=== PATIENT | male | born 1955 | race Caucasian/White ===

== ENCOUNTER → 2017-01-18 | Outpatient (CLI) | payer BC ==
[~2017-01-18] MED LIST: DAYPRO600 M1 PO; MEDROL DOSEPAK4 MG PO; ROBAXIN750 MG PO; VICODIN 500 MG-1 TAB PO
[2017-01-18 14:47] LABS: BASO % 0.4 % (0.0-1.0); EOS # 0.4 10*3/uL (0.0-0.4); EOS % 8.4 % (1.0-4.0); IG # 0.1 10*3/uL (0.0-0.1); LYMPH # 1.7 10*3/uL (1.3-4.4); LYMPH % 34.4 % (27.0-41.0); MEAN CELL VOLUME 91.8 fl (80.0-94.0); MEAN CORPUSCULAR HGB 31.3 pg (27.0-31.0); MEAN PLATELET VOLUME 9.8 fl (9.6-12.3); MONO # 0.7 10*3/uL (0.1-1.0); MONO % 13.6 % (3.0-9.0); NEUT % 42.2 % (47.0-73.0); PLATELET COUNT AUTOMATED 176 10*3/uL (130-400); RED BLOOD COUNT 5.12 10*6/uL (4.50-5.90); RED CELL DISTRI WIDTH 13.9 % (0-14.5); WHITE BLOOD COUNT 4.8 10*3/uL (4.8-10.8)
[2017-01-18 15:03] LABS: HEMOGLOBIN A1c 7.2 % (4.8-5.6)
[2017-01-18 15:24] LABS: ALBUMIN 3.6 gm/dl (3.1-4.5); ALKALINE PHOSPHATASE 52 U/L (45-117); BILIRUBIN, TOTAL 0.5 mg/dl (0.2-1.0); BUN 22 mg/dl (7-24); CARBON DIOXIDE 29 mmol/L (21-32); CHLORIDE 104 mmol/L (98-107); CHOLESTEROL 116 mg/dL (<200); EST GLOM FILT AFRICAN AMERICAN > 60 ml/min; FREE T4 0.93 ng/dl (0.76-1.46); GLUCOSE 133 mg/dL (65-99); HDL CHOLESTEROL 24 mg/dl (40-60); LDL CHOLESTEROL 59 mg/dL (9-159); POTASSIUM 4.1 mmol/L (3.5-5.1); SGOT/AST 33 IU/L (3-35); SGPT/ALT 55 U/L (12-78); SODIUM 140 mmol/L (136-145); TOTAL PROTEIN 7.4 gm/dL (6.4-8.2); TRIGLYCERIDES 164 mg/dl (<150); VLDL CHOLESTEROL 33 mg/dL (6-40)
== END | disposition home or self-care (01) ==
LOC: LAB 14:08
PROVIDERS: Internal Medicine Endocrinology, Diabetes & Metabolism
DX: E78.2 Mixed hyperlipidemia (principal); E11.65 Type 2 diabetes mellitus with hyperglycemia; I10 Essential (primary) hypertension; E03.9 Hypothyroidism, unspecified

== ENCOUNTER 2017-05-04 15:44 | Emergency (ER) | payer BC ==
[~2017-05-04] VITALS: Ht 187.9 cm; Wt 145.1 kg
[2017-05-04 16:15] LABS: BASO % 0.3 % (0.0-1.0); EOS # 0.5 10*3/uL (0.0-0.4); EOS % 4.9 % (1.0-4.0); HEMATOCRIT 47.6 % (42.0-52.0); HEMOGLOBIN 16.5 g/dl (14.0-18.0); IG # 0.2 10*3/uL (0.0-0.1); LYMPH % 19.1 % (27.0-41.0); MEAN CORPUSCULAR HGB 30.8 pg (27.0-31.0); MEAN CORPUSCULAR HGB CONC 34.7 g/dl (33.0-37.0); MEAN PLATELET VOLUME 9.6 fl (9.6-12.3); MONO # 0.6 10*3/uL (0.1-1.0); MONO % 5.3 % (3.0-9.0); NEUT # 7.1 10*3/uL (2.3-7.9); NEUT % 68.4 % (47.0-73.0); PLATELET COUNT AUTOMATED 213 10*3/uL (130-400); RED BLOOD COUNT 5.35 10*6/uL (4.50-5.90); RED CELL DISTRI WIDTH 14.3 % (0-14.5); WHITE BLOOD COUNT 10.4 10*3/uL (4.8-10.8)
[2017-05-04 16:32] LABS: ALBUMIN 3.9 gm/dl (3.1-4.5); ALKALINE PHOSPHATASE 66 U/L (45-117); BILIRUBIN, TOTAL 0.4 mg/dl (0.2-1.0); BUN 24 mg/dl (7-24); CARBON DIOXIDE 23 mmol/L (21-32); CHLORIDE 104 mmol/L (98-107); EST GLOM FILT AFRICAN AMERICAN > 60 ml/min; GLUCOSE 180 mg/dL (65-99); POTASSIUM 4.2 mmol/L (3.5-5.1); SGOT/AST 24 IU/L (3-35); SGPT/ALT 47 U/L (12-78); SODIUM 137 mmol/L (136-145); TOTAL PROTEIN 7.8 gm/dL (6.4-8.2)
[2017-05-04 16:34] LABS: TROPONIN I < 0.015 ng/ml (<0.045)
[2017-05-04 16:35] LABS: PROTHROMBIN TIME 10.4 SECONDS (9.0-12.4)
[2017-05-04] MEDS ORDERED: MEDROL DOSEPAK4 MG PO (18:10)
[2017-05-04] MEDS ORDERED: ORPHENADRINE C100 M1 PO (18:10)
[2017-05-04] MEDS ORDERED: NAPROSYN500 MG PO (18:10)
== END 2017-05-04 20:55 | disposition left against medical advice (07) ==
LOC: ED 15:44
PROVIDERS: Nurse Practitioner Family
DX: R07.89 Other chest pain (principal); M54.5 Low back pain; R06.02 Shortness of breath; E78.5 Hyperlipidemia, unspecified; I10 Essential (primary) hypertension; E11.9 Type 2 diabetes mellitus without complications; F17.200 Nicotine dependence, unspecified, uncomplicated

== ENCOUNTER → 2017-05-27 | Outpatient (CLI) | payer BC ==
[~2017-05-27] MED LIST changes: +NAPROSYN500 MG PO; +ORPHENADRINE C100 M1 PO
[2017-05-27 17:06] LABS: ALBUMIN 3.8 gm/dl (3.1-4.5); ALKALINE PHOSPHATASE 67 U/L (45-117); BILIRUBIN, TOTAL 0.5 mg/dl (0.2-1.0); BUN 22 mg/dl (7-24); CARBON DIOXIDE 30 mmol/L (21-32); CHLORIDE 101 mmol/L (98-107); CHOLESTEROL 135 mg/dL (<200); EST GLOM FILT AFRICAN AMERICAN > 60 ml/min; FREE T4 1.15 ng/dl (0.76-1.46); GLUCOSE 171 mg/dL (65-99); HDL CHOLESTEROL 28 mg/dl (40-60); LDL CHOLESTEROL 44 mg/dL (9-159); POTASSIUM 4.2 mmol/L (3.5-5.1); SGOT/AST 23 IU/L (3-35); SGPT/ALT 47 U/L (12-78); SODIUM 138 mmol/L (136-145); TOTAL PROTEIN 7.6 gm/dL (6.4-8.2); TRIGLYCERIDES 315 mg/dl (<150); VLDL CHOLESTEROL 63 mg/dL (6-40)
[2017-05-28 10:09] LABS: MICRO ALBUMIN/CRE RATIO 16.5 (0.0-30.0)
[2017-05-28 12:06] LABS: LYME AB/TOTAL IMMUNOGLOBULINS <0.91 ISR (0.00-0.90)
== END | disposition home or self-care (01) ==
LOC: LAB 16:01
PROVIDERS: Internal Medicine Endocrinology, Diabetes & Metabolism
DX: Z11.2 Encounter for screening for other bacterial diseases (principal); E29.1 Testicular hypofunction; R53.83 Other fatigue; M60.9 Myositis, unspecified; E11.40 Type 2 diabetes mellitus with diabetic neuropathy, unspecified; Z79.4 Long term (current) use of insulin; W57.XXXA Bitten or stung by nonvenomous insect and other nonvenomous arthropods, initial encounter

== ENCOUNTER → 2017-05-31 | Outpatient (CLI) | payer BC | END | disposition home or self-care (01) | LOC: LAB 14:23 | DX: E11.40 Type 2 diabetes mellitus with diabetic neuropathy, unspecified (principal); Z79.4 Long term (current) use of insulin ==

== ENCOUNTER → 2017-06-02 | Outpatient (CLI) | payer BC | END | disposition home or self-care (01) | LOC: US 15:45 | DX: R22.1 Localized swelling, mass and lump, neck (principal); M79.9 Soft tissue disorder, unspecified ==

== ENCOUNTER → 2017-07-14 | Outpatient (CLI) | payer BC ==
[~2017-07-14] VITALS: Ht 193 cm; Wt 149.7 kg
[~2017-07-14] MED LIST changes: +ASPIRIN EC650 MG PO; +AXIRON30 MG/1.1 TD; +BYDUREON P2 MG/0.65 SQ; +FENOFIBRATE145 M1 PO; +HUMULIN N100 UNIT/2 SQ; +JARDIANCE10 MG PO; +LOPRESSOR50 M1 PO; +LOSARTAN-HCTZ1 EACH PO; +LOVAZA1 GM PO; +NIACIN PO; +QVAR8.7 G1 INH; +SIMVASTATIN20 MG PO; +SYNTHROID300 MCG PO; +TRESIBA FL100 UNIT/1 SQ; +XANAX1 MG PO; +ZOLOFT50 MG PO
[2017-07-14 13:12] VITALS: BP 151/72
[2017-07-14 14:50] LABS: BASO # 0.1 10*3/uL (0.0-0.1); BASO % 0.5 % (0.0-1.0); EOS # 0.6 10*3/uL (0.0-0.4); EOS % 6.2 % (1.0-4.0); HEMATOCRIT 46.5 % (42.0-52.0); HEMOGLOBIN 15.9 g/dl (14.0-18.0); LYMPH # 2.4 10*3/uL (1.3-4.4); LYMPH % 23.9 % (27.0-41.0); MEAN CELL VOLUME 91.5 fl (80.0-94.0); MEAN CORPUSCULAR HGB 31.3 pg (27.0-31.0); MEAN CORPUSCULAR HGB CONC 34.2 g/dl (33.0-37.0); MEAN PLATELET VOLUME 9.7 fl (9.6-12.3); MONO # 0.7 10*3/uL (0.1-1.0); MONO % 7.1 % (3.0-9.0); NEUT # 6.2 10*3/uL (2.3-7.9); PLATELET COUNT AUTOMATED 218 10*3/uL (130-400); RED BLOOD COUNT 5.08 10*6/uL (4.50-5.90); RED CELL DISTRI WIDTH 14.1 % (0-14.5); WHITE BLOOD COUNT 10.1 10*3/uL (4.8-10.8)
[2017-07-14 15:11] LABS: BUN 26 mg/dl (7-24); CHLORIDE 101 mmol/L (98-107); CREATININE 1.03 mg/dL (0.70-1.30); POTASSIUM 4.3 mmol/L (3.5-5.1); SODIUM 140 mmol/L (136-145)
== END | disposition home or self-care (01) ==
LOC: LAB 07:29 → SDC 08:45 → EDSTATUS 07-16 08:45 → SDC 07-16 09:30
PROVIDERS: Surgery
DX: M79.89 Other specified soft tissue disorders (principal); R22.1 Localized swelling, mass and lump, neck

== ENCOUNTER → 2017-08-31 | Outpatient (CLI) | payer BC ==
--- NOTE | ~2017-08-31 | PF ---
[place], [place] PULMONARY FUNCTION TEST [id number] UNIT #: [id number] ROOM: DOCTOR: MARLENY GARCIA MD,ROSIE BIRTHDATE: [birth year] DOS: 08/31/2017 ORDERED BY: Dr. Demarco Begum. HISTORY: The patient recorded as 61-year-old male, height of 76 inches, weight of 325 pounds. The patient was reported symptoms of shortness of breath with exertion, productive cough and frequent wheezing. History of tobacco use was noted 2 packs of cigarettes per day for 44 years. History of bronchial asthma was also reported. SPIROMETRY: The FVC were recorded 4.55 liters, 78% predicted value with 12% improvement postbronchodilator. The FEV1 was noted 3.37 liters as 74% predicted value with 16% improvement postbronchodilator test. Ratio of FEV1/FVC recorded 73%. Flow volume was suggestive of reversible obstructive lung disease. The patient's lung volumes, thoracic gas volume recorded as 72%, residual volume 121%, total lung capacity 98%. RV/TLC ratio 120%, lung volume suggestive of mild air trapping secondary to obstructive lung disease. The patient lung diffusion recorded 71%, mildly decreased without correction of carbon monoxide hemoglobin values. The patient's airway resistance and passive conductance were normal. FINAL IMPRESSION: Evidence of reversible obstructive lung disease and bronchial asthma was noted with current pulmonary function test. ROSIE FARMER MD CM:PFREPORT:PULMONARY FUNCTION TEST [id number] ROSIE GARCIA MD
== END | disposition home or self-care (01) ==
LOC: CP 12:58
DX: J44.9 Chronic obstructive pulmonary disease, unspecified (principal); I51.9 Heart disease, unspecified; G47.33 Obstructive sleep apnea (adult) (pediatric); E11.40 Type 2 diabetes mellitus with diabetic neuropathy, unspecified; L72.3 Sebaceous cyst; I10 Essential (primary) hypertension; R94.39 Abnormal result of other cardiovascular function study; E00.2 Congenital iodine-deficiency syndrome, mixed type; E78.5 Hyperlipidemia, unspecified; Z79.4 Long term (current) use of insulin

== ENCOUNTER → 2017-12-20 | Day surgery (SDC) | payer BC ==
[~2017-12-20] VITALS: Ht 193 cm; Wt 138.8 kg
--- NOTE | ~2017-12-20 | PROC NOTE ---
[place], [place] PROCEDURE NOTE NAME: GE TOSCANO UNIT #: [id number] ROOM: DOCTOR: MARLENY GARCIA MD,ROSIE BIRTHDATE: [birth year] DOS: 12/20/2017 PROCEDURE: Fibrobronchoscopy. PREOPERATIVE DIAGNOSIS: Nonresolving cough. The patient is wheezing with maximum medical management. POSTOPERATIVE DIAGNOSES: Evidence of moderate to severe mucus impaction, clear endobronchial tree bilaterally. PROCEDURE DESCRIPTION: Informed consent obtained for the patient. The patient brought to the OR and placed in a supine position. Conscious sedation administered by the Anesthesia Department. After achieving appropriate sedation, the patient's airway introduced into the mouth. Bronchoscope advanced to the airway into the laryngeal area. Epiglottis vocal cords were seen. The bronchoscope advanced to the vocal cord and tracheal lumen. The tracheal lumen for the patient was noted with moderate amount of thick mucus secretion. The patient suctioned out to the cas level. Right upper, right lower, left upper, lingula, lower lobe bronchi were all examined. Moderate amount of mucus plugs noted endobronchial tree bilaterally, which was suctioned out with half normal saline wash, sent for cultures. Procedure was well tolerated by the patient without difficulty. Postoperative findings were discussed with the patient's girlfriend in the recovery room. ROSIE FARMER MD CM:PROCNOTE:PROCEDURE NOTE 1402 [id number] ROSIE GARCIA MD
[2017-12-20 08:23] VITALS: BP 137/59
[2017-12-20 09:53] VITALS: BP 117/50
[2017-12-20 10:05] VITALS: BP 110/50
[2017-12-20 10:21] VITALS: BP 113/49
[2017-12-21 14:08] LABS: ACID FAST SPEC PROCESSING Concentration (.)
== END | disposition home or self-care (01) ==
LOC: SDC 08:02
PROVIDERS: Internal Medicine Critical Care Medicine
DX: J98.09 Other diseases of bronchus, not elsewhere classified (principal); G47.33 Obstructive sleep apnea (adult) (pediatric); J45.909 Unspecified asthma, uncomplicated; I10 Essential (primary) hypertension; K21.9 Gastro-esophageal reflux disease without esophagitis; Z98.890 Other specified postprocedural states; Z79.899 Other long term (current) drug therapy; E78.5 Hyperlipidemia, unspecified; E10.8 Type 1 diabetes mellitus with unspecified complications; E07.89 Other specified disorders of thyroid; E66.9 Obesity, unspecified; Z68.37 Body mass index [BMI] 37.0-37.9, adult; F17.210 Nicotine dependence, cigarettes, uncomplicated; Z82.49 Family history of ischemic heart disease and other diseases of the circulatory system

== ENCOUNTER 2018-02-14 22:59 | Inpatient (IN) | payer BC ==
[~2018-02-14] VITALS: Ht 193 cm; Wt 137.7 kg
--- NOTE | ~2018-02-14 | O ---
[place], [place] OPERATIVE NOTE NAME: GE TOSCANO UNIT #: [id number] ROOM: 421 DOCTOR: JASPER KNIGHT,JULIANA BIRTHDATE: [birth year] DOS: 02/16/2018 HISTORY OF PRESENT ILLNESS: The patient has presented with chief complaint of epigastric pain. The patient is on 325 mg aspirin tablets a day. Smoking about a pack and half to 2 packs of cigarettes per day. OPERATION: Today's procedure part of investigation is panendoscopy plus biopsy. PREMEDICATION: Versed and propofol. SCOPE: Olympus forward-viewing gastroscope Q10 video. REPORT: After putting the patient in left lateral position and application of lubricant to the scope, the scope was introduced. Thereafter, under direct visualization, advanced through the length of esophagus without difficulty. Gastric pouch was entered. Evidence of bile reflux gastritis seen. Duodenitis appreciated. Photographed. Antral biopsy was obtained. GI reflection of the scope reveals cardia to be benign. The patient extubated, tolerated the procedure well. IMPRESSION: Bile reflux gastritis, duodenitis. PLAN AND DISCUSSION: The patient advised to abstain from two aspirin per day. Aspirin would be adequate enough. The patient is going to be placed on Protonix 40 mg 1 daily. While inpatient here, we are going to give him 2 grams of Carafate slurry 2 hours before meals and at bedtime and regular diet. ACTIVITY: As tolerated. JULIANA HUTCHINSON MD CM:OPRECORD:OPERATIVE NOTE 1333 [id number] JULIANA HUTCHINSON MD 02/16/18 1444 interface
--- NOTE | ~2018-02-14 | CON ---
[place], [place] REPORT OF CONSULTATION NAME: GE TOSCANO UNIT #: [id number] ROOM: 421 DOCTOR: MARLENY GARCIA MD,ROSIE BIRTHDATE: [birth year] DOS: 02/16/2018 PULMONARY CONSULTATION EVALUATION MANAGEMENT REASON FOR CONSULTATION: To get the preoperative assessment for the patient's current plan, GI workup including colonoscopy and assessment of shortness of breath with hypoxia. REQUESTING PHYSICIAN: Hospitalist Services. HISTORY OF PRESENT ILLNESS: This is a 62-year-old white male who has been known to me from the past has been treated in the office with the medical management of obstructive sleep apnea disorder, past tobacco use and other problem. The patient has been assessed in the Emergency Room on 02/15/2018 as the patient reported symptoms of having increased pain, which is described in the upper portion of the abdomen. The symptoms were associated with significant nausea as well as some vomiting intermittently. The patient denies any symptoms of abdominal pain, was reported having diarrhea for the past 3 days, described watery without any blood in it. The pain has been noted intermittently. During the course of hospitalization, the patient stated he developed symptoms of shortness breath and also was reported with hypoxia. He has a CTA of the chest done yesterday as well that excluded any pulmonary embolism. He does have symptoms of mild cough without any sputum expectoration. Denies symptoms of hemoptysis or any chest pain with the symptoms. REVIEW OF SYSTEMS: CONSTITUTIONAL: Fatigue and tiredness reported without any symptoms of fever or chills at this time. EYES: Denies any burning, redness, or tenderness. EARS, NOSE, THROAT SYMPTOMS: Denies sore throat, hoarseness, otalgia, postnasal drainage or epistaxis. CARDIOVASCULAR: Denies anginal pain, edema of lower extremity or palpitation. GASTROINTESTINAL: Upper abdominal pain reported with nausea, vomiting, which has been noted stable with the diarrhea. Denies symptoms of hematochezia. Denies symptoms of melena. GENITOURINARY SYMPTOMS: No dysuria, suprapubic pain, or hematuria. MUSCULOSKELETAL: No acute joint pain, redness or tenderness or any deformities. SKIN: No abnormal lesions or rashes. CENTRAL NERVOUS SYSTEM: No dizziness, headache, diplopia, syncopal episodes or seizures. Remaining systems were reviewed, they were noted all negative. PAST MEDICAL HISTORY: 1. Uncomplicated moderate persistent bronchial asthma. 2. Obstructive sleep apnea disorder, currently treated with the oral BiPAP with the pressures of 21/13 were noted the max pressure in 12/2017. 3. Allergic rhinitis. 4. Type 2 diabetes mellitus. 5. Hypothyroidism. [place], [place] REPORT OF CONSULTATION NAME: GE TOSCANO UNIT #: [id number] ROOM: 421 DOCTOR: MARLENY GARCIA MD,ROSIE BIRTHDATE: [birth year] 6. Hypercholesterolemia. 7. Essential hypertension. 8. Generalized anxiety disorder and depression. 9. Chronic obesity. PAST SURGICAL HISTORY: 1. T and A. 2. Flexible bronchoscopy that was done as an outpatient recently as a therapeutic bronchoscopy on 12/20/2017. SOCIAL HISTORY: The patient is currently , has no children, lives at home. Denies history of alcohol use or any illicit drug use. Tobacco use noted from age [age] years old, pack of cigarettes a day stating no tobacco use since mid-January of 2018. FAMILY HISTORY: Father at age 57 years complication of myocardial infarction. Mother current living, 89 years old with history of acute stroke. CURRENT MEDICATIONS: Administered for the patient was noted as use of Carafate, fish oil, sertraline , insulin, levothyroxine, Protonix intravenously, promethazine, IV Zosyn, Xanax, morphine and other p.r.n. medications. DRUG ALLERGIES: Noted as no known drug allergies. PHYSICAL EXAMINATION: GENERAL: This is a 62-year-old white male noted awake and alert without any acute distress. Height of 6 feet 4 inches, weight of 203 pounds, BMI 36.9. Chronic obesity. VITAL SIGNS: Reported as normal temperature in the last 24 hours for admission, heart rate noted essentially with bradycardia for this patient as 46 beats per minute and the highest previous noted as 80 beats per minute. The respiratory rate was 18-20. The blood pressure 150/52-120/62. Pulse oxygen saturation currently noted room air 100%, previously 4 L nasal cannula 95% saturation. HEENT: The head was atraumatic. Severe reduced posterior pharyngeal space with high tongue base and crowding of soft tissue structures. NECK: Supple. CARDIOVASCULAR: S1, S2 audible without any added sounds. LUNGS: Noted mild decreased breath sounds in the lungs bilaterally without any wheezing or crackles. ABDOMEN: Soft, nontender with chronic obesity. EXTREMITIES: The patient noted without any acute edema, clubbing or cyanosis. MUSCULOSKELETAL: The patient was noted without any acute deformities. SKIN: Visible skin was noted without any lesions or rashes. LABORATORY DATA: CBC that was done on 02/14/2018 was noted WBC count 15.8, hemoglobin 18.3, hematocrit 54.8 with normal platelet count. The lactic acid noted 3.9 on admission. The PTT was noted on 02/14/2018 as 22. CMP of the patient in the Emergency Room BUN 22, creatinine 1.51, potassium 3.1. The CMP of patient that were done yesterday, normal BUN and creatinine at that time. CBC on 02/15/2018 WBC count 11.1, the patient was still noted mildly elevated [place], [place] REPORT OF CONSULTATION NAME: GE TOSCANO UNIT #: [id number] ROOM: 421 DOCTOR: MARLENY GARCIA MD,[facility] BIRTHDATE: [birth year] with hematocrit 51.8 and hemoglobin of 16.9. CBC of this morning was noted with normal hemoglobin and hematocrit, WBC count 14.2. The CMP this morning, normal BUN and creatinine completely. Potassium was normal. The PTT was noted as normal. Upper abdominal ultrasound noted gallbladder sludge noted with gallbladder wall thickening. There were no cholelithiasis or biliary dilatation, suspected. He had a CT of the chest done yesterday at the time of the absence of current problem noted clear CT scan without any evidence of pulmonary embolism. The abdominal CT scan and the pelvic CT scan done on 02/15/2018 in the Emergency Room was reported no acute inflammatory issues, diverticulosis noted without any radiologic evidence of diverticulitis. IMPRESSION: 1. The patient currently admitted to the hospital for upper abdominal pain. The patient is tolerating clear, may be related to the cholecystitis or other abnormality such as gastritis, will remain in consideration. 2. Hypoxia reported at this time not clear to me with rapid resolution of hypoxia might be suggestive of error in recording of his pulse ox. 3. Admission with elevated hemoglobin and hematocrit most likely secondary to intravascular volume depletion with diarrhea and others and secondary polycythemia due to lack of oxygen supplementation at night. 4. Known history of obstructive sleep apnea disorder treated with the BiPAP. 5. History of bronchial asthma without any evidence of acute exacerbation as well. 6. Chronic obesity. PLAN OF TREATMENT: Based on my opinion, the patient could undergo the EGD and colonoscopy as planned for further assessment. Consider further GI workup for this patient as well. Other supportive therapy, plan of management to be done has already been scheduled. The assessment and management was discussed with Dr. Warner Newman. The patient could use his own BiPAP at home, could be started during this hospitalization with the settings of BiPAP of . Further changes and reassessment of the patient will be done based on the progression of the current illness. ROSIE FARMER MD CM:CONSTR:REPORT OF CONSULTATION 1350 02/17/18 0111 interface
--- NOTE | ~2018-02-14 | CON ---
[place], [place] REPORT OF CONSULTATION [id number] UNIT #: [id number] ROOM: 421 DOCTOR: JASPER KNIGHTROYCEMAURICE BIRTHDATE: [birth year] DOS: 02/16/2018 GASTROENDOSCOPIC CONSULTATION REPORT HISTORY OF PRESENT ILLNESS: This is a 62-year-old patient who has presented with multiple complaints, among which has been his polycythemia appearance with white blood cell of 15.8 and H and H of 18 and 54. The patient is also complaining of subxiphoid pain, initially complained of chest pain also and shortness of breath. All the studies have been reviewed by Dr. Newman and we initially canceled him from endoscopy schedule and apparently all became negative and ____ cleared for EGD. His hemoglobin A1c was 7.2. This gentleman is doing about 700 mg of aspirin daily and smoker of about a pack and half to 2 packs per day, expected problem. The CT scan of the head was taken for his headache and it was negative. CT scan of the abdomen and pelvis was done, no evidence of inflammatory process. Troponins remain negative and essentially unremarkable studies otherwise. PAST MEDICAL HISTORY: Congestive heart failure, obesity, asthma, gastroesophageal reflux, diabetes mellitus, hypertension, and hypothyroidism. PAST SURGICAL HISTORY: Laminectomy. SOCIAL HISTORY: Smoker and nonalcohol consumer except in social ways. FAMILY HISTORY: Noncontributory. ALLERGIES: Allergies to no known medications. MEDICATIONS: Medication list has been reviewed. REVIEW OF SYSTEMS: HEENT: Denies double vision, blurred vision. RESPIRATORY: Denies acute shortness of breath. CARDIOVASCULAR: Denies acute chest pain. DIGESTIVE SYSTEM: Subxiphoid pain. PHYSICAL EXAMINATION: GENERAL: Erythemic like sunburn pattern. HEENT: Head normocephalic, nontraumatic. Mouth and buccal mucosa benign. NECK: Supple. No thyromegaly, no cervical lymphadenopathy. CHEST: Symmetric anatomy, equal expansion. No wheeze, no rhonchi. HEART: Normal sinus rhythm. No gallop, no murmur. ABDOMEN: Large, soft. No hepato-organomegaly can be elicited. Bowel sounds present. EXTREMITIES: No cyanosis, no pedal edema. NEUROLOGIC: Alert, oriented to time, place, and person. IMPRESSION AND PLAN: Epigastric pain, diffuse fatty metamorphosis of liver, taking 700 mg of aspirin and a pack and half to 2 packs of cigarettes per day and initially polycythemic appearance, which has responded to hydration with a [place], [place] REPORT OF CONSULTATION NAME: GE TOSCANO UNIT #: [id number] ROOM: [facility] DOCTOR: JULIANA HUTCHINSON MD BIRTHDATE: [birth year] drop in H and H to 15 and 48. CTA of the chest has been unremarkable. Sed rate has been unremarkable. He has some glucose intolerance with elevated hemoglobin A1c. Since all the studies are negative and his complaint is subxiphoid, I am going to proceed with EGD. JULIANA HUTCHINSON MD CM:CONSTR:REPORT OF CONSULTATION 1312 02/17/18 0030 interface
[2018-02-14 22:59] VITALS: BP 116/52
[2018-02-14 23:15] VITALS: BP 103/55
[2018-02-14 23:28] VITALS: BP 103/55
[2018-02-14 23:31] LABS: BASO # 0.1 10*3/uL (0.0-0.1); BASO % 0.4 % (0.0-1.0); EOS # 1.2 10*3/uL (0.0-0.4); EOS % 7.5 % (1.0-4.0); HEMATOCRIT 54.8 % (42.0-52.0); HEMOGLOBIN 18.3 g/dl (14.0-18.0); LYMPH # 3.3 10*3/uL (1.3-4.4); LYMPH % 20.8 % (27.0-41.0); MEAN CELL VOLUME 85.8 fl (80.0-94.0); MEAN CORPUSCULAR HGB 28.6 pg (27.0-31.0); MEAN CORPUSCULAR HGB CONC 33.4 g/dl (33.0-37.0); MEAN PLATELET VOLUME 9.6 fl (9.6-12.3); MONO # 0.9 10*3/uL (0.1-1.0); MONO % 5.8 % (3.0-9.0); NEUT # 10.2 10*3/uL (2.3-7.9); NEUT % 64.6 % (47.0-73.0); PLATELET COUNT AUTOMATED 288 10*3/uL (130-400); RED BLOOD COUNT 6.39 10*6/uL (4.50-5.90); RED CELL DISTRI WIDTH 17.5 % (0-14.5); WHITE BLOOD COUNT 15.8 10*3/uL (4.8-10.8)
[2018-02-14 23:45] VITALS: BP 102/51
[2018-02-14 23:47] LABS: ALBUMIN 3.9 gm/dl (3.1-4.5); ALKALINE PHOSPHATASE 72 U/L (45-117); BUN 22 mg/dl (7-24); CHLORIDE 100 mmol/L (98-107); CREATININE 1.51 mg/dL (0.70-1.30); LIPASE 165 U/L (73-393); POTASSIUM 3.1 mmol/L (3.5-5.1); SGOT/AST 20 IU/L (3-35); SGPT/ALT 35 U/L (12-78); SODIUM 139 mmol/L (136-145); TOTAL PROTEIN 7.7 gm/dL (6.4-8.2)
[2018-02-14 23:48] LABS: TROPONIN I < 0.015 ng/ml (<0.045)
[2018-02-15] VITALS (12 sets, daily range): BP systolic 108–130; BP diastolic 49–62
[2018-02-15 01:59] LABS: BILIRUBIN NEGATIVE (NEGATIVE); BLOOD NEGATIVE (NEGATIVE); CLARITY CLEAR (CLEAR); COLOR YELLOW (YELLOW); GLUCOSE 3+ (NEGATIVE); KETONE NEGATIVE (NEGATIVE); LEUKO ESTERASE NEGATIVE (NEGATIVE); NITRITE NEGATIVE (NEGATIVE); UROBILINOGEN 0.2 E.U./dl (0.2-1.0)
[2018-02-15] MEDS ORDERED: ENTRESTO 49 MG1 EACH PO (03:59)
[2018-02-15] MEDS ORDERED: HUMALOG100 UNIT/1 SQ (04:00)
[2018-02-15 04:35] LABS: ACT PARTIAL THROMBO TIME 25.1 SECONDS (20.8-31.5); INTERNATIONAL NORM RATIO 1.1 (2.0-3.5)
[2018-02-15 04:52] LABS: ALBUMIN 3.4 gm/dl (3.1-4.5); ALKALINE PHOSPHATASE 60 U/L (45-117); BUN 24 mg/dl (7-24); CHLORIDE 106 mmol/L (98-107); CHOLESTEROL 119 mg/dL (<200); CREATININE 1.25 mg/dL (0.70-1.30); PHOSPHOROUS 3.3 mg/dL (2.5-4.9); POTASSIUM 3.9 mmol/L (3.5-5.1); SGOT/AST 19 IU/L (3-35); SGPT/ALT 31 U/L (12-78); SODIUM 139 mmol/L (136-145); TOTAL PROTEIN 6.9 gm/dL (6.4-8.2); TRIGLYCERIDES 158 mg/dl (<150); VLDL CHOLESTEROL 32 mg/dL (6-40)
[2018-02-15 04:56] LABS: HDL CHOLESTEROL 19 mg/dl (40-60); LDL CHOLESTEROL 68 mg/dL (9-159)
[2018-02-15 06:21] LABS: HEMATOCRIT 51.8 % (42.0-52.0); HEMOGLOBIN 16.9 g/dl (14.0-18.0); MEAN CELL VOLUME 87.9 fl (80.0-94.0); MEAN CORPUSCULAR HGB 28.7 pg (27.0-31.0); MEAN CORPUSCULAR HGB CONC 32.6 g/dl (33.0-37.0); MEAN PLATELET VOLUME 10.1 fl (9.6-12.3); PLATELET COUNT AUTOMATED 239 10*3/uL (130-400); RED BLOOD COUNT 5.89 10*6/uL (4.50-5.90); RED CELL DISTRI WIDTH 17.1 % (0-14.5); WHITE BLOOD COUNT 11.8 10*3/uL (4.8-10.8)
[2018-02-15 07:07] LABS: ATYPICAL LYMPHS 2 % (0-0); BASOPHILS 1 % (0-1); PLATELET SUFFICIENCY NORMAL (NORMAL); TOTAL CELLS COUNTED 100 #CELLS
[2018-02-15 07:09] LABS: VITAMIN D, 25-HYDROXY 22.8 ng/mL (30-100)
[2018-02-15] MEDS ORDERED: PRILOSEC20 M1 PO (11:24)
[2018-02-15] MEDS ORDERED: MUCINEX DM 30/61 TAB PO (11:26)
[2018-02-16] VITALS (7 sets, daily range): BP systolic 120–150; BP diastolic 40–68
[2018-02-16 06:55] LABS: BASO # 0.1 10*3/uL (0.0-0.1); BASO % 0.4 % (0.0-1.0); EOS # 0.5 10*3/uL (0.0-0.4); EOS % 3.4 % (1.0-4.0); HEMATOCRIT 48.4 % (42.0-52.0); HEMOGLOBIN 15.7 g/dl (14.0-18.0); LYMPH # 2.3 10*3/uL (1.3-4.4); LYMPH % 16.1 % (27.0-41.0); MEAN CORPUSCULAR HGB 28.5 pg (27.0-31.0); MEAN CORPUSCULAR HGB CONC 32.4 g/dl (33.0-37.0); MEAN PLATELET VOLUME 9.7 fl (9.6-12.3); MONO # 0.9 10*3/uL (0.1-1.0); MONO % 6.3 % (3.0-9.0); NEUT # 10.4 10*3/uL (2.3-7.9); NEUT % 72.9 % (47.0-73.0); PLATELET COUNT AUTOMATED 208 10*3/uL (130-400); RED CELL DISTRI WIDTH 16.5 % (0-14.5); WHITE BLOOD COUNT 14.2 10*3/uL (4.8-10.8)
[2018-02-16 07:09] LABS: ALBUMIN 3.1 gm/dl (3.1-4.5); ALKALINE PHOSPHATASE 56 U/L (45-117); BUN 16 mg/dl (7-24); CHLORIDE 108 mmol/L (98-107); CREATININE 1.19 mg/dL (0.70-1.30); LIPASE 127 U/L (73-393); POTASSIUM 4.2 mmol/L (3.5-5.1); SGOT/AST 13 IU/L (3-35); SGPT/ALT 28 U/L (12-78); SODIUM 141 mmol/L (136-145); TOTAL PROTEIN 6.4 gm/dL (6.4-8.2)
[2018-02-16] MEDS ORDERED: GOOD SENSE ASP325 MG PO (15:45)
[2018-02-16] MEDS ORDERED: LOPRESSOR25 MG PO (15:45)
[2018-02-16] MEDS ORDERED: PROTONIX40 MG PO (15:45)
[2018-02-16] MEDS ORDERED: CARAFATE1 G1 PO (15:45)
== END 2018-02-16 16:21 | disposition home or self-care (01) | DRG 391 ==
LOC: ED 22:59 → ICCU 02-15 02:39 → EDHOLD 02-15 02:39 → ICCU 02-15 03:01 → 4E 02-15 17:26
PROVIDERS: Emergency Medicine; Emergency Medicine Emergency Medical Services; Internal Medicine; Internal Medicine Nephrology
PROC: 0DB68ZX Excision of Stomach, Via Natural or Artificial Opening Endoscopic, Diagnostic (ICD-10-PCS; principal; 2018-02-16)
DX: K29.70 Gastritis, unspecified, without bleeding (principal); N17.0 Acute kidney failure with tubular necrosis; E87.2 Acidosis; E66.01 Morbid (severe) obesity due to excess calories; E83.41 Hypermagnesemia; D75.1 Secondary polycythemia; R10.13 Epigastric pain; I50.9 Heart failure, unspecified; K57.30 Diverticulosis of large intestine without perforation or abscess without bleeding; D72.810 Lymphocytopenia; E87.6 Hypokalemia; E11.9 Type 2 diabetes mellitus without complications; E78.5 Hyperlipidemia, unspecified; E03.8 Other specified hypothyroidism; K21.9 Gastro-esophageal reflux disease without esophagitis; G47.33 Obstructive sleep apnea (adult) (pediatric); F17.210 Nicotine dependence, cigarettes, uncomplicated; I11.0 Hypertensive heart disease with heart failure; F32.9 Major depressive disorder, single episode, unspecified; J45.909 Unspecified asthma, uncomplicated; K29.80 Duodenitis without bleeding; Z79.4 Long term (current) use of insulin; Z71.6 Tobacco abuse counseling; Z68.36 Body mass index [BMI] 36.0-36.9, adult

== ENCOUNTER → 2018-02-23 | Outpatient (CLI) | payer BC ==
[~2018-02-23] MED LIST changes: +CARAFATE1 G1 PO; +ENTRESTO 49 MG1 EACH PO; +GOOD SENSE ASP325 MG PO; +HUMALOG100 UNIT/1 SQ; +LOPRESSOR25 MG PO; +MUCINEX DM 30/61 TAB PO; +PRILOSEC20 M1 PO; +PROTONIX40 MG PO
[2018-02-23 14:09] LABS: BASO # 0.1 10*3/uL (0.0-0.1); BASO % 0.4 % (0.0-1.0); EOS # 1.5 10*3/uL (0.0-0.4); EOS % 12.3 % (1.0-4.0); HEMATOCRIT 53.4 % (42.0-52.0); HEMOGLOBIN 17.6 g/dl (14.0-18.0); LYMPH % 16.7 % (27.0-41.0); MEAN CELL VOLUME 87.7 fl (80.0-94.0); MEAN CORPUSCULAR HGB 28.9 pg (27.0-31.0); MEAN PLATELET VOLUME 9.9 fl (9.6-12.3); MONO # 0.9 10*3/uL (0.1-1.0); MONO % 7.3 % (3.0-9.0); NEUT # 7.5 10*3/uL (2.3-7.9); PLATELET COUNT AUTOMATED 252 10*3/uL (130-400); RED BLOOD COUNT 6.09 10*6/uL (4.50-5.90); RED CELL DISTRI WIDTH 17.1 % (0-14.5)
[2018-02-23 14:26] LABS: ALBUMIN 3.8 gm/dl (3.1-4.5); BUN 20 mg/dl (7-24); CHLORIDE 101 mmol/L (98-107); CREATININE 1.14 mg/dL (0.70-1.30); LIPASE 131 U/L (73-393); POTASSIUM 4.2 mmol/L (3.5-5.1); SGOT/AST 18 IU/L (3-35); SGPT/ALT 28 U/L (12-78); SODIUM 138 mmol/L (136-145)
[2018-02-23 14:27] LABS: ALKALINE PHOSPHATASE 68 U/L (45-117); TOTAL PROTEIN 7.2 gm/dL (6.4-8.2)
== END | disposition home or self-care (01) ==
LOC: LAB 13:34
PROVIDERS: Internal Medicine Cardiovascular Disease
DX: I11.9 Hypertensive heart disease without heart failure (principal); R00.2 Palpitations; I49.3 Ventricular premature depolarization; I25.10 Atherosclerotic heart disease of native coronary artery without angina pectoris; E11.621 Type 2 diabetes mellitus with foot ulcer; E11.40 Type 2 diabetes mellitus with diabetic neuropathy, unspecified; R94.39 Abnormal result of other cardiovascular function study; K21.9 Gastro-esophageal reflux disease without esophagitis; E29.1 Testicular hypofunction; E06.3 Autoimmune thyroiditis; F32.9 Major depressive disorder, single episode, unspecified; R07.9 Chest pain, unspecified; Z79.4 Long term (current) use of insulin

== ENCOUNTER → 2018-03-30 | Day surgery (SDC) | payer BC ==
[~2018-03-30] VITALS: Ht 193 cm; Wt 140.6 kg
[~2018-03-30] MED LIST changes: +AXIRON30 MG/1.1 T; +COREG3.125 MG PO; +COUMADIN5 M2 PO; +Coumadin2.5 MG PO; +FISH OIL 500MG PO; +LEVAQUIN750 M1 PO; +LOVENOX120 MG/0.8 SC; +Lopressor25 MG PO; +NORCO 5-325 TA1 EACH PO; -SYNTHROID300 MCG PO; +Synthroid,Lev200 MCG PO
--- NOTE | ~2018-03-30 | O ---
[place], [place] OPERATIVE NOTE NAME: GE TOSCANO UNIT #: [id number] ROOM: DOCTOR: JULIANA HUTCHINSON MD BIRTHDATE: [birth year] DOS: 03/30/2018 INDICATIONS: The patient is a 62-year-old who has presented with colonic screening. ALLERGIES: No known medication. PAST MEDICAL HISTORY: Hypercholesterolemia, hypertension, diabetes mellitus and hypothyroidism. SOCIAL HISTORY: Smoker, nonalcohol consumer. FAMILY HISTORY: Noncontributory. PAST SURGICAL HISTORY: Tonsillectomy and lower back surgery. PROCEDURE: Today's procedure part of investigation is colonoscopy. PREMEDICATION: Propofol. SCOPE: Olympus folding colonoscope 10L video. REPORT: After putting the patient in left lateral position and application of lubricant to rectal pouch and digital examination, the scope was introduced; thereafter, under direct visualization, advanced through the length of colon without difficulty. Base of the cecum explored, appendiceal was identified, ileocecal valve was defined. Air was suctioned out. Gradually, scope was withdrawn from ascending, transverse, descending colon under circumferential fashion. Mucosal vascularity carefully examined. The patient extubated, tolerated procedure well. IMPRESSION: Normal colonoscopic examination. PLAN AND DISCUSSION: High fiber fruit diet. ACTIVITY: Ad natali. FOLLOWUP: As outpatient routinely with you in office and p.r.n. with us in GI Clinic. Follow-up colonoscopy in 10 years unless patient has symptoms for which follow-up should be sooner. Thank you very much indeed for your kind referral. [place], [place] OPERATIVE NOTE NAME: GE TOSCANO UNIT #: [id number] ROOM: DOCTOR: JULIANA HUTCHINSON MD BIRTHDATE: [birth year] JULIANA HUTCHINSON MD CM:OPRECORD:OPERATIVE NOTE [id number] JULIANA HUTCHINSON MD 04/11/18 1755 interface
[2018-03-30 07:42] VITALS: BP 114/66
[2018-03-30 08:37] VITALS: BP 90/42
[2018-03-30 08:52] VITALS: BP 85/37
[2018-03-30 09:07] VITALS: BP 96/50
== END | disposition home or self-care (01) ==
LOC: SDC 03-24 09:30
DX: Z12.11 Encounter for screening for malignant neoplasm of colon (principal); E78.00 Pure hypercholesterolemia, unspecified; I10 Essential (primary) hypertension; E11.9 Type 2 diabetes mellitus without complications; E03.9 Hypothyroidism, unspecified; F17.210 Nicotine dependence, cigarettes, uncomplicated; Z98.890 Other specified postprocedural states; F32.9 Major depressive disorder, single episode, unspecified; G47.30 Sleep apnea, unspecified

== ENCOUNTER → 2018-04-14 | Outpatient (CLI) | payer BC ==
[2018-04-14 14:38] LABS: FREE T4 1.48 ng/dl (0.76-1.46)
[2018-04-14 14:46] LABS: THYROID STIM HORMONE (HS) 1.05 uIU/ml (0.358-4.75)
== END | disposition home or self-care (01) ==
LOC: LAB 10:43
PROVIDERS: Internal Medicine Endocrinology, Diabetes & Metabolism
DX: I10 Essential (primary) hypertension (principal); I25.10 Atherosclerotic heart disease of native coronary artery without angina pectoris; E11.621 Type 2 diabetes mellitus with foot ulcer; I51.9 Heart disease, unspecified; E11.40 Type 2 diabetes mellitus with diabetic neuropathy, unspecified; K21.9 Gastro-esophageal reflux disease without esophagitis; E78.5 Hyperlipidemia, unspecified; E06.3 Autoimmune thyroiditis; E66.9 Obesity, unspecified; R19.7 Diarrhea, unspecified; R00.1 Bradycardia, unspecified; R00.2 Palpitations; R94.39 Abnormal result of other cardiovascular function study; Z79.4 Long term (current) use of insulin

== ENCOUNTER → 2018-04-18 | Day surgery (SDC) | payer BC ==
[2018-04-14 11:47] VITALS: BP 133/67
[2018-04-14 14:18] LABS: BASO % 0.3 % (0.0-1.0); EOS # 1.1 10*3/uL (0.0-0.4); EOS % 9.8 % (1.0-4.0); HEMATOCRIT 52.5 % (42.0-52.0); HEMOGLOBIN 17.2 g/dl (14.0-18.0); LYMPH # 2.2 10*3/uL (1.3-4.4); LYMPH % 18.7 % (27.0-41.0); MEAN CELL VOLUME 86.2 fl (80.0-94.0); MEAN CORPUSCULAR HGB 28.2 pg (27.0-31.0); MEAN CORPUSCULAR HGB CONC 32.8 g/dl (33.0-37.0); MONO # 0.8 10*3/uL (0.1-1.0); MONO % 6.8 % (3.0-9.0); NEUT # 7.3 10*3/uL (2.3-7.9); NEUT % 63.6 % (47.0-73.0); PLATELET COUNT AUTOMATED 238 10*3/uL (130-400); RED BLOOD COUNT 6.09 10*6/uL (4.50-5.90); RED CELL DISTRI WIDTH 15.5 % (0-14.5); WHITE BLOOD COUNT 11.5 10*3/uL (4.8-10.8)
[2018-04-14 14:35] LABS: ACT PARTIAL THROMBO TIME 24.3 SECONDS (20.8-31.5); ALBUMIN 3.6 gm/dl (3.1-4.5); ALKALINE PHOSPHATASE 75 U/L (45-117); BILIRUBIN, DIRECT 0.1 mg/dL (0.0-0.2); BUN 20 mg/dl (7-24); CHLORIDE 106 mmol/L (98-107); CREATININE 1.07 mg/dL (0.70-1.30); POTASSIUM 4.1 mmol/L (3.5-5.1); SGOT/AST 12 IU/L (3-35); SGPT/ALT 27 U/L (12-78); SODIUM 140 mmol/L (136-145); TOTAL PROTEIN 7.4 gm/dL (6.4-8.2)
[2018-04-18] VITALS (7 sets, daily range): BP systolic 94–151; BP diastolic 43–64
[~2018-04-18] VITALS: Ht 193 cm; Wt 131.5 kg
--- NOTE | ~2018-04-18 | O ---
[place], [place] OPERATIVE NOTE NAME: GE TOSCANO [facility] #: [id number] UNIT #: [id number] ROOM: DOCTOR: KWAN AGUILAR MD BIRTHDATE: [birth year] DOS: 04/18/2018 PREOPERATIVE DIAGNOSIS: Biliary dyskinesia. POSTOPERATIVE DIAGNOSIS: Biliary dyskinesia. PROCEDURE: Laparoscopic cholecystectomy. SURGEON: Kwan Aguilar MD DIGITAL PHOTOGRAPHIC PRINTER: GABBY. ANESTHESIA: General with endotracheal intubation. INDICATIONS: This is a 62-year-old gentleman with a history of biliary dyskinesia is here for the above-mentioned procedure. The procedure and its complications were explained to the patient in detail preoperatively. Complications that were discussed included but were not limited to bleeding, infection, hematoma/seroma/abscess formation, biloma formation, inadvertent injury to common bile duct, and incisional hernia formation. He agreed to proceed. DESCRIPTION OF PROCEDURE: After identifying the patient, the patient was brought to the operating suite and laid in the supine position. After induction of general anesthesia, the parts were painted and draped in the usual sterile fashion. A time-out procedure was called. An incision was made below the umbilicus in a transverse fashion. The skin and the subcutaneous tissue were incised. The midline fascia was incised and 2 stay sutures with 0 Vicryl were taken on either side. The peritoneum was opened and a 12 mm Gosia port was introduced into the peritoneal cavity. Pneumoperitoneum was created. Under direct vision, an epigastric incision of 10 mm and two 5 mm incision was made in the right upper quadrant and appropriate size ports were introduced. The gallbladder was retracted superiorly and laterally. The cystic duct and the cystic artery were carefully dissected until the critical view of safety was obtained and the triangle of Calot was clearly identified. Thereafter, each of these structures were clipped 3 times and cut between the first and the second clip. The gallbladder was then removed from the bed of the gallbladder with the help of electrocautery. It was sent for histopathological diagnosis after it was inserted into an EndoCatch bag. Hemostasis was achieved in the liver bed and saline was used for irrigation. After the saline was sucked away, there was no bleeding seen. At this point, the right upper quadrant and epigastric ports were removed and there was no bleeding seen. The umbilical port was also removed and the 2 stay sutures were tied together and an additional 0 Vicryl stitch was taken to close the fascia. Thereafter, 1% plain lidocaine was injected in the skin edges on all the four incisions and they were approximated with the help of 4-0 Vicryl in a subcuticular running fashion. Dressings were placed. The patient tolerated the procedure well and was extubated uneventfully and brought back to the recovery room in stable fashion. There were no complications. Dr. Kwan Aguilar, the attending surgeon, was present throughout the operating case. [place], [place] OPERATIVE NOTE NAME: GE TOSCANO Crist[place] UNIT #: [id number] ROOM: DOCTOR: KWAN AGUILAR MD BIRTHDATE: [birth year] Kwan Aguilar MD CM:OPRECORD:OPERATIVE NOTE 1300 1631 KWAN AGUILAR MD 04/18/18 1630 interface
== END | disposition home or self-care (01) ==
LOC: SDC 04-14 12:30
PROVIDERS: Surgery
DX: K81.1 Chronic cholecystitis (principal); K82.8 Other specified diseases of gallbladder; I10 Essential (primary) hypertension; E07.9 Disorder of thyroid, unspecified; E11.9 Type 2 diabetes mellitus without complications; E78.5 Hyperlipidemia, unspecified; J45.909 Unspecified asthma, uncomplicated; K21.9 Gastro-esophageal reflux disease without esophagitis; E66.09 Other obesity due to excess calories; F32.9 Major depressive disorder, single episode, unspecified; G47.33 Obstructive sleep apnea (adult) (pediatric); F17.210 Nicotine dependence, cigarettes, uncomplicated; Z79.899 Other long term (current) drug therapy; Z98.890 Other specified postprocedural states; Z68.35 Body mass index [BMI] 35.0-35.9, adult; Z79.01 Long term (current) use of anticoagulants

== ENCOUNTER 2018-04-27 14:55 | Emergency (ER) | payer BC ==
[~2018-04-27] VITALS: Wt 131.5 kg
--- NOTE | ~2018-04-27 | EKG ---
[place], [place] ELECTROCARDIOGRAM REPORT NAME: GE TOSCANO UNIT #: [id number] ROOM: DOCTOR: LUIS DRAFT REPORT BIRTHDATE: [birth year] [facility] Test Date: 2018-04-27 Test Time: 15:37:53 Pat Name: GE TOSCANO Department: Room: Gender: Exercise Science Internship: LORRI : 1955 Requested By: GINA STEVENS Order Number: [id number] Reading MD: Yonis Newman MD Measurements Intervals [place] Rate: 71 P: 57 WV: 166 QRS: 31 QRSD: 94 T: 9 QT: 372 QTc: 405 Interpretive Statements Sinus rhythm Abnormal R-wave progression, early transition Baseline wander in lead(s) V2 Normal EKG. Electronically Signed On 04-28-2018 16:08:22 PDT by Yonis Newman MD CM:EKGRPT:ELECTROCARDIOGRAM REPORT 1537 1608 GINA ALANIZ DRAFT REPORT GINA STEVENS DO
[~2018-04-27 14:55] MED LIST changes: -COUMADIN5 M2 PO; -Coumadin2.5 MG PO; -FISH OIL 500MG PO; -LEVAQUIN750 M1 PO; -LOVENOX120 MG/0.8 SC
[2018-04-27 15:34] LABS: BASO % 0.2 % (0.0-1.0); EOS # 1.1 10*3/uL (0.0-0.4); EOS % 9.1 % (1.0-4.0); HEMOGLOBIN 15.3 g/dl (14.0-18.0); LYMPH # 1.7 10*3/uL (1.3-4.4); MEAN CELL VOLUME 85.5 fl (80.0-94.0); MEAN CORPUSCULAR HGB 27.8 pg (27.0-31.0); MEAN CORPUSCULAR HGB CONC 32.6 g/dl (33.0-37.0); MEAN PLATELET VOLUME 9.7 fl (9.6-12.3); MONO # 0.8 10*3/uL (0.1-1.0); MONO % 6.9 % (3.0-9.0); NEUT # 8.3 10*3/uL (2.3-7.9); NEUT % 68.9 % (47.0-73.0); PLATELET COUNT AUTOMATED 255 10*3/uL (130-400)
[2018-04-27 15:42] LABS: ACT PARTIAL THROMBO TIME 22.2 SECONDS (20.8-31.5)
[2018-04-27 15:49] LABS: ALBUMIN 3.3 gm/dl (3.1-4.5); ALKALINE PHOSPHATASE 64 U/L (45-117); BUN 23 mg/dl (7-24); CHLORIDE 105 mmol/L (98-107); CREATININE 1.09 mg/dL (0.70-1.30); LIPASE 117 U/L (73-393); POTASSIUM 4.1 mmol/L (3.5-5.1); SGOT/AST 14 IU/L (3-35); SGPT/ALT 20 U/L (12-78); SODIUM 140 mmol/L (136-145); TOTAL PROTEIN 7.2 gm/dL (6.4-8.2)
[2018-04-27 15:50] LABS: TROPONIN I < 0.015 ng/ml (<0.045)
[2018-04-27] MEDS ORDERED: LEVAQUIN750 M1 PO (16:37)
[2018-04-27] MEDS ORDERED: NORCO 5-325 TA1 EACH PO (16:37)
== END 2018-04-27 16:50 | disposition left against medical advice (07) ==
LOC: ED 14:55
PROVIDERS: Emergency Medicine
DX: J18.1 Lobar pneumonia, unspecified organism (principal); F17.200 Nicotine dependence, unspecified, uncomplicated; K21.9 Gastro-esophageal reflux disease without esophagitis; E78.5 Hyperlipidemia, unspecified; E11.649 Type 2 diabetes mellitus with hypoglycemia without coma; E66.01 Morbid (severe) obesity due to excess calories; G47.33 Obstructive sleep apnea (adult) (pediatric); J45.909 Unspecified asthma, uncomplicated; I11.0 Hypertensive heart disease with heart failure; I50.9 Heart failure, unspecified; Z90.89 Acquired absence of other organs; Z79.899 Other long term (current) drug therapy; Z79.4 Long term (current) use of insulin; Z90.49 Acquired absence of other specified parts of digestive tract

== ENCOUNTER 2018-05-02 17:12 | Inpatient (IN) | payer BC ==
[~2018-05-02] VITALS: Ht 193 cm; Wt 128.1 kg
--- NOTE | ~2018-05-02 | EKG ---
[place], [place] ELECTROCARDIOGRAM REPORT NAME: GE TOSCANO UNIT #: [id number] ROOM: 402 DOCTOR: LUIS DRAFT REPORT BIRTHDATE: [birth year] [facility] Test Date: 2018-05-02 Test Time: 17:56:01 Pat Name: GE TOSCANO Department: Room: Gender: Senior Chemical Engineer: : 1955 Requested By: JV COLBERT Order Number: [id number] Reading MD: Sammie Horner MD Measurements Intervals [place] Rate: 70 P: 42 VT: 174 QRS: 20 QRSD: 92 T: 5 QT: 369 QTc: 399 Interpretive Statements Sinus rhythm Compared to ECG 04/27/2018 15:37:53 No significant changes Electronically Signed On 05-03-2018 9:41:59 PDT by Sammie Horner MD CM:EKGRPT:ELECTROCARDIOGRAM REPORT 1756 0941 JV SMITH DRAFT REPORT JV COLBERT M.D.
--- NOTE | ~2018-05-02 | PR ---
[place], [place] PROGRESS NOTE NAME: GE TOSCANO UNIT #: [id number] ROOM: 402 DOCTOR: ROSIE DE LA CRUZ MD BIRTHDATE: [birth year] DOS: 05/05/2018 SUBJECTIVE: The patient was noted comfortable at this time, resting on the back, but still noted with hemoptysis, appeared like old clotted blood expectorant. There was no fresh hemoptysis. He was continued on Lovenox injection subcutaneously given as well as the Coumadin. Denies any acute shortness of breath. The chest pain has been improving progressively on the right side. OBJECTIVE: VITAL SIGNS: Normal temperature, respiratory rate 20, heart rate 53, blood pressure 125/61. Pulse oxygen saturation on room air 95% saturation. HEENT: No acute change. Moderate obesity. CARDIOVASCULAR: S1, S2 is audible. LUNGS: The patient was noted without any wheezing or crackles at the present time. ABDOMEN: Soft, obese, nontender. EXTREMITIES: Without any acute edema. LABORATORY DATA: INR today noted 1.0, which is normal. CBC of the patient was noted as normal CBC. IMPRESSION: The patient who has been currently noted with findings of pulmonary embolus involving the right upper, right middle branch, pulmonary infarction and chest pain for the patient noted stable. Therapeutic anticoagulation noted with Lovenox and Coumadin has been continued at this time to subtherapeutic INR. PLAN OF MANAGEMENT: The patient could be discharged home to have his usual activities continued. He was advised not to have any exertional activities at this time at least for the next couple of weeks. Daily INR monitoring was ordered for the patient as well. Lovenox also will be given as Lovenox 130 mg subQ b.i.d. dosing until the INR becomes therapeutic. Instruction for the patient's discharge has been discussed with the nursing staff and the patient in detail and understood by the patient. [place], [place] PROGRESS NOTE NAME: GE TOSCANO UNIT #: [id number] ROOM: 402 DOCTOR: ROSIE DE LA CRUZ MD BIRTHDATE: [birth year] ROSIE FARMER MD CM:PNTRANS 1317 1658 ROSIE GARCIA MD 05/05/18 1657 interface
--- NOTE | ~2018-05-02 | PR ---
[place], [place] PROGRESS NOTE NAME: GE TOSCANO [facility] #: [id number] UNIT #: [id number] ROOM: 402 DOCTOR: MARLENY GARCIA MD,ROSIE BIRTHDATE: [birth year] DOS: 05/04/2018 SUBJECTIVE: The patient was seen and examined on 05/04/2018, was noted comfortable at this time, still noted hemoptysis ____. The chest pain was noted decreased, but not completely resolved. He has been noted ambulation without any shortness of breath. He does have a small amount of sputum expectoration and coughing. Denies symptoms of hematuria, abdominal pain. The patient was started on Lovenox injection, which has been tolerated by the patient without difficulty. The unfractionated therapeutic heparin was discontinued prior to starting Lovenox for 4 hours. He has been noted without any symptoms of chest pain or dizziness. REVIEW OF SYSTEMS: Remaining systems were reviewed. They were noted all negative. OBJECTIVE: VITAL SIGNS: For the patient which has been recorded shows a normal temperature, respiratory rate of 20-18, heart rate 55-62, blood pressure 132/60-112/53. Pulse oxygen saturation noted as 94% on room air at rest. HEAD, EYES, EARS, NOSE, AND THROAT: Examination shows moderate severe obesity. Head was atraumatic. Eyes nonicterus. NECK: Supple. CARDIOVASCULAR SYSTEM: S1, S2 is audible. LUNGS: Moderate decreased breath sounds without any wheezing or crackles. ABDOMEN: Soft, nontender. Bowel sounds present. EXTREMITIES: Without any acute edema. SKIN: No lesions or rashes. CENTRAL NERVOUS SYSTEM: Cranial nerves 2-12 intact. IMPRESSION: 1. The patient with acute pulmonary embolism involving several pulmonary arterial branches ____ in the right lung, predominantly in the right upper and right middle lobe branches. 2. Pulmonary infarction related to the current pulmonary embolism noted involving the right mid lung. 3. Moderate obesity. 4. Obstructive sleep apnea disorder. 5. Pleuritic chest pain secondary to acute pulmonary embolus and pulmonary infarction. PLAN OF MANAGEMENT: The patient will be started on traditional medical management for the pulmonary embolism, but use of the Lovenox and to bridge until a therapeutic INR will be achieved with the use of the Coumadin. He was ordered to be started on Coumadin by the pharmacy today. He will be getting first dose of Coumadin today. Continue Lovenox shots. Arrangement possible discharge with home health nursing for the close monitoring INR until the therapeutic level achieved. In the meantime, the Lovenox will be continued. The patient to bridge until the therapeutic INR will be achieved. Following hypercoagulability profile. Usual care. Supportive care, other therapy, plan of management and plan. No exertional activities. Usual activities, walking [place], [place] PROGR[facility]: [id number] UN[facility] #: [id number] ROOM: [facility] DOCTOR: MARLENY GARCIA MD,ROSIE BIRTHDATE: [birth year] could be allowed. Assessment and management was discussed with the director of casework about the discharge planning today as well as with the patient. ROSIE FARMER MD CM:YARY [id number] ROSIE GARCIA MD 05/04/18 1126 interface
--- NOTE | ~2018-05-02 | CON ---
[place], [place] REPORT OF CONSULTATION [facility] [id number] UNIT #: [id number] ROOM: 402 DOCTOR: MARLENY GARCIA MDROSIE BIRTHDATE: [birth year] DOS: 05/03/2018 PULMONARY CONSULTATION EVALUATION AND MANAGEMENT CONSULTATION REQUESTED BY: Hospitalist services. REASON FOR CONSULTATION: To assess the current acute pulmonary embolism. HISTORY OF PRESENT ILLNESS: A 62-year-old white male patient who has been known to me, was seen in my office yesterday as was complaining of having increased chest pain. The patient also developed hemoptysis recently. The patient underwent a laparoscopic cholecystectomy on 04/18/2018, the patient was sent home after that. Five days later, the patient was noted with severe excruciating pain, which is described in the right lower portion of the chest, nonradiating. Pain has been described intermittently. The patient was advised to go to the Emergency Room by the surgery staff. The patient went to the Emergency Room and had the chest x-ray completed, which shows basilar area of consolidation and infiltration. The patient was advised for hospitalization, but the patient did not get admitted to the hospital because of social reasons for himself. He was prescribed Levaquin 500 mg daily, which has been used since 04/27/2018. He was seen in my office yesterday as the symptoms not resolving and was concerned with hemoptysis. He has been noted fresh blood, which is small amount. The patient was expectorated intermittently. He was also noted with persistent pain, which he described in the right lower portion of the chest now also present in right mid portion of the chest as well. Pain was described as pleuritic in a scale of 1-10 about 6 or 7. He was seen in the office, has a chest x-ray completed, which shows persistent area of consolidation in the right lower lobe. The patient was sent to the Emergency Room, for further assessment for the possibility of persistent pneumonia and also to have a pulmonary embolism excluded with current recent hemoptysis. The patient was seen in the Emergency Room by Dr. Oliveira. CTA of the chest was done that confirmed the diagnosis of pulmonary embolism on the right side. The patient was admitted to the hospital. He has been started on IV Cardene fractionated therapeutic heparin yesterday. The patient had receiving the heparin has been noted with only small amount of hemoptysis without any worsening. However, the frequency has been decreased of hemoptysis and sputum expectoration. Pain in the chest was still described, which was partially released with current pain medications. He denies symptoms of acute shortness of breath at rest. No symptoms of active wheezing. REVIEW OF SYSTEMS: CONSTITUTIONAL SYMPTOMS: Fatigue and tired, noted reported symptoms of fever or chills at home. EYES: Denies any burning, redness, or discharge. EARS, NOSE, THROAT SYMPTOMS: Denies sore throat, hoarseness, otalgia, postnasal drainage or epistaxis. CARDIOVASCULAR: Denies anginal pain, edema, or pain in the lower extremity. GASTROINTESTINAL: No dysphagia, nausea, vomiting, diarrhea, abdominal pain, hematemesis, melena, or hematochezia. Has symptom of dysphagia. Denies any recent abnormal weight loss. However, the patient able to lose about 30-40 [place], [place] REPORT OF CONSULTATION [facility]: [id number] UNIT #: [id number] ROOM: [facility] DOCTOR: ROSIE DE LA CRUZ MD BIRTHDATE: [birth year] pounds in the last few months with dietary adjustment. GENITOURINARY: No dysuria, suprapubic pain, or hematuria. MUSCULOSKELETAL: Acute joint pain, redness, or tenderness. CENTRAL NERVOUS SYSTEM: No dizziness, headache, diplopia, or syncopal episodes. Remaining systems were reviewed. They were noted all negative. PAST MEDICAL HISTORY: 1. Uncomplicated moderate persistent bronchial asthma. 2. Obstructive sleep apnea disorder treated with the BiPAP. 3. Allergic rhinitis. 4. Type 2 diabetes mellitus. 5. Hypothyroidism. 6. Hypercholesterolemia. 7. Moderate obesity. 8. Essential hypertension. 9. Anxiety disorder and depression. PAST SURGICAL HISTORY: 1. T and A. 2. Therapeutic bronchoscopy in 12/2017. 3. Laparoscopic cholecystectomy, which was done on 04/2018. SOCIAL HISTORY: The patient of note does not have any children. Smoking noted from age [age] years old, pack of cigarettes per day, which has been discontinued in this year. FAMILY HISTORY: The patient's father at 57 years with complication of myocardial infarction. Mother is living, 89 years old without any known medical illnesses except stroke. CURRENT MEDICATIONS: Administered subtherapeutic unfractionated heparin intravenous administration, fenofibrate, simvastatin, Coreg, Entresto, fish oil, sertraline, Carafate, levothyroxine, Protonix, Flonase, sliding scale insulin coverage, DuoNeb and other p.r.n. medications. DRUG ALLERGIES: The patient was noted as no known drug allergies. PHYSICAL EXAMINATION: GENERAL: This is a 62-year-old male who has been currently noted to be awake and alert without any acute distress, lying in the bed. Height of 6 feet 4 inches, weight of 282 pounds, BMI 34.4. VITAL SIGNS: Normal temperature, respiratory rate 18-24, heart rate of 50-72, blood pressure 141/62-130/65. Pulse oxygen saturation on rest to room air was noted as 96% saturation on 2 liters nasal cannula, later 97% saturation. HEENT: Head was atraumatic. Eyes nonicterus. NECK: Supple and obese. Decreased posterior pharyngeal space, high tongue base crowding of soft tissue structures. CARDIOVASCULAR: S1, S2 is audible. LUNGS: The patient noted with general reduction of breath sounds bilaterally. [place], [place] REPORT OF CONSULTATION NAME: GE TOSCANO UNIT #: [id number] ROOM: 402 DOCTOR[facility] BIR[facility]: [birth year] There was no wheezing or crackles at the present time. ABDOMEN: Soft, obese, nontender. EXTREMITIES: Chronic edema with skin lesions or rashes. CENTRAL NERVOUS SYSTEM: Cranial nerves 2-12 intact. No focal deficit. MUSCULOSKELETAL: Without any acute deformities. LABORATORY DATA: CBC on 05/02/2018, WBC count 13.2, hemoglobin and hematocrit normal, platelet count was normal. PT and PTT were noted as normal. CMP on 05/02/2018, BUN normal, creatinine was normal. Troponin was normal. Second set and third set of troponin normal. PT and PTT on admission were noted normal. PTT later noted therapeutic 65 and 45 this morning as well. CBC this morning, WBC 11.7, hemoglobin and hematocrit normal. Blood culture which was done on 04/27/2018 noted all negative for any abnormal bacterial growth, final results. Vital signs bilateral lower extremity noted as negative. Chest x-ray that was done yesterday shows area of consolidation, infiltration noted in the right lower lobe in the office. CT scan of the chest done as the CT of the chest completed on 05/02/2018. Mild nonspecific lymphadenopathy noted in the mediastinum, which was seen in the previous CT scan of 10/2017. The patient noted multiple evidence of pulmonary embolus involving the right upper, right middle and right lower lobe pulmonary arterial branches. Evidence of a pleural base infiltration noted in the right middle and the right upper lobe suggestive of pulmonary infarct. There were no pleural effusions. There was no saddle pulmonary embolism seen. IMPRESSION: 1. The patient will be currently admitted to the hospital and noted with pleuritic chest pain, pulmonary infarction related to the pulmonary embolism, which was a nonsaddle involving the right upper and the right middle lobe pulmonary branches predominantly. The risk factor would be considered is a current surgery, which was done for the patient as laparoscopic cholecystectomy. 2. Chronic moderate obesity. 3. Obstructive sleep apnea disorder. There is no evidence of acute pneumonia noted at this time, current pulmonary infarct and suspected pneumonia. 4. Past history of nicotine abuse as well. 5. History of hypothyroidism, gastroesophageal reflux and several other medical conditions known. PLAN OF MANAGEMENT: Hypercoagulability workup has been already ordered for this patient. The unfractionated heparin continued from yesterday from admission and this time will be discontinued 4 hours later, and replaced with therapeutic Lovenox. Lovenox will be continued at least for 48 hours and then the patient will be switched due to the possibility of antithrombin medication such as Eliquis, and/or Xarelto based on his coverage prior to the consideration home discharge depends on further clinical stability. Ultrasound of the lower extremity already obtained that excluded pulmonary embolism. Mediastinal lymphadenopathy was noted nonspecific and small at this time and not carry any significance. Because of pulmonary infarct, the patient nodular opacity, certainly CT scan of the chest should be done in about 2-3 months later to document the complete resolution to exclude any underlying malignant process. Continue other supportive therapy, plan of management and care plan and usual [place], [place] REPORT OF CONSULTATION NAME: GE TOSCANO UNIT #: [id number] ROOM: 402 DOCTOR: MARLENY GARCIA MDROSIE BIRTHDATE: [birth year] treatment. Supportive plan of therapy and medical management with the additional treatment changes will be done based on the progression of the illness and the hemoptysis noted minimal at this time, does not have any significance, but the monitoring to be done closely in case of any worsening of the hemoptysis. The hemoptysis portion of the patient intolerance or other contraindication to the anticoagulation is still clear, at that time, the patient would be considered for the IVC filter insertion. Other supportive therapy, plan of management continued. Assessment and management discussed with the patient in detail. No need of antibiotics at this time. Thanks for allowing me to participate in care of this patient. ROSIE FARMER MD CM:CONSTR:REPORT OF CONSULTATION 1159 05/16/18 1021 interface
[~2018-05-02 17:12] MED LIST changes: +LEVAQUIN750 M1 PO
[2018-05-02 17:13] VITALS: BP 141/62
[2018-05-02 17:31] VITALS: BP 124/59
[2018-05-02 17:42] LABS: BASO % 0.3 % (0.0-1.0); EOS # 0.5 10*3/uL (0.0-0.4); EOS % 3.9 % (1.0-4.0); HEMOGLOBIN 14.7 g/dl (14.0-18.0); LYMPH # 1.5 10*3/uL (1.3-4.4); MEAN CELL VOLUME 84.4 fl (80.0-94.0); MEAN CORPUSCULAR HGB 27.6 pg (27.0-31.0); MEAN CORPUSCULAR HGB CONC 32.7 g/dl (33.0-37.0); MEAN PLATELET VOLUME 9.2 fl (9.6-12.3); MONO % 7.9 % (3.0-9.0); NEUT % 75.8 % (47.0-73.0); PLATELET COUNT AUTOMATED 278 10*3/uL (130-400); RED BLOOD COUNT 5.33 10*6/uL (4.50-5.90); RED CELL DISTRI WIDTH 14.6 % (0-14.5); WHITE BLOOD COUNT 13.2 10*3/uL (4.8-10.8)
[2018-05-02 17:55] LABS: ACT PARTIAL THROMBO TIME 24.3 SECONDS (20.8-31.5); INTERNATIONAL NORM RATIO 1.1 (2.0-3.5)
[2018-05-02 17:58] LABS: ALBUMIN 3.1 gm/dl (3.1-4.5); ALKALINE PHOSPHATASE 64 U/L (45-117); BUN 23 mg/dl (7-24); CHLORIDE 103 mmol/L (98-107); CREATININE 1.27 mg/dL (0.70-1.30); POTASSIUM 4.4 mmol/L (3.5-5.1); SGOT/AST 12 IU/L (3-35); SGPT/ALT 22 U/L (12-78); SODIUM 138 mmol/L (136-145); TOTAL PROTEIN 7.3 gm/dL (6.4-8.2)
[2018-05-02 17:59] LABS: TROPONIN I < 0.015 ng/ml (<0.045)
[2018-05-02 19:35] VITALS: BP 127/88
[2018-05-02 20:39] VITALS: BP 123/71
[2018-05-02 20:55] VITALS: BP 141/68
[2018-05-03] VITALS: BP 138/65
[2018-05-03 06:03] LABS: BASO % 0.3 % (0.0-1.0); EOS # 0.6 10*3/uL (0.0-0.4); EOS % 4.9 % (1.0-4.0); HEMATOCRIT 43.5 % (42.0-52.0); HEMOGLOBIN 14.3 g/dl (14.0-18.0); LYMPH # 2.2 10*3/uL (1.3-4.4); LYMPH % 18.8 % (27.0-41.0); MEAN CORPUSCULAR HGB 27.6 pg (27.0-31.0); MEAN CORPUSCULAR HGB CONC 32.9 g/dl (33.0-37.0); MEAN PLATELET VOLUME 9.7 fl (9.6-12.3); MONO % 8.5 % (3.0-9.0); NEUT # 7.8 10*3/uL (2.3-7.9); NEUT % 66.4 % (47.0-73.0); PLATELET COUNT AUTOMATED 274 10*3/uL (130-400); RED BLOOD COUNT 5.18 10*6/uL (4.50-5.90); RED CELL DISTRI WIDTH 14.7 % (0-14.5); WHITE BLOOD COUNT 11.7 10*3/uL (4.8-10.8)
[2018-05-03 06:09] LABS: BUN 22 mg/dl (7-24); CHLORIDE 102 mmol/L (98-107); CREATININE 1.03 mg/dL (0.70-1.30); POTASSIUM 3.7 mmol/L (3.5-5.1); SODIUM 138 mmol/L (136-145)
[2018-05-03 08:00] VITALS: BP 112/60
[2018-05-03 12:00] VITALS: BP 130/56
[2018-05-03 16:00] VITALS: BP 142/60
[2018-05-03 20:00] VITALS: BP 128/50
[2018-05-04] VITALS: BP 132/63
[2018-05-04 07:53] VITALS: BP 112/58
[2018-05-04 12:00] VITALS: BP 129/61
[2018-05-04 16:00] VITALS: BP 134/62
[2018-05-04 16:27] LABS: ANTICARDIOLIPIN AB, IGG, QN <9 GPL U/mL (0-14); ANTICARDIOLIPIN AB, IGM, QN <9 MPL U/mL (0-12); CARDIOLIPIN AB IGA 161836 <9 APL U/mL (0-11)
[2018-05-04 18:03] LABS: PTT-LA 47.7 sec (0.0-51.9)
[2018-05-04 20:00] VITALS: BP 147/64
[2018-05-05] VITALS: BP 155/60
[2018-05-05 04:02] LABS: ACTIVATED PROTEIN C 117762 2.4 ratio (2.2-3.5)
[2018-05-05 07:52] LABS: BASO # 0.1 10*3/uL (0.0-0.1); BASO % 0.6 % (0.0-1.0); EOS # 0.7 10*3/uL (0.0-0.4); EOS % 7.7 % (1.0-4.0); HEMATOCRIT 45.8 % (42.0-52.0); HEMOGLOBIN 14.6 g/dl (14.0-18.0); LYMPH # 1.6 10*3/uL (1.3-4.4); LYMPH % 17.6 % (27.0-41.0); MEAN CELL VOLUME 86.1 fl (80.0-94.0); MEAN CORPUSCULAR HGB 27.4 pg (27.0-31.0); MEAN CORPUSCULAR HGB CONC 31.9 g/dl (33.0-37.0); MEAN PLATELET VOLUME 9.7 fl (9.6-12.3); MONO # 0.8 10*3/uL (0.1-1.0); MONO % 8.5 % (3.0-9.0); NEUT # 5.9 10*3/uL (2.3-7.9); PLATELET COUNT AUTOMATED 284 10*3/uL (130-400); RED BLOOD COUNT 5.32 10*6/uL (4.50-5.90); RED CELL DISTRI WIDTH 14.6 % (0-14.5); WHITE BLOOD COUNT 9.3 10*3/uL (4.8-10.8)
[2018-05-05 08:00] VITALS: BP 138/55
[2018-05-05 08:19] LABS: ALBUMIN 3.1 gm/dl (3.1-4.5); BUN 18 mg/dl (7-24); CHLORIDE 105 mmol/L (98-107); CREATININE 1.01 mg/dL (0.70-1.30); POTASSIUM 3.9 mmol/L (3.5-5.1); SGOT/AST 12 IU/L (3-35); SGPT/ALT 26 U/L (12-78); SODIUM 139 mmol/L (136-145)
[2018-05-05 08:21] LABS: ALKALINE PHOSPHATASE 84 U/L (45-117); TOTAL PROTEIN 7.1 gm/dL (6.4-8.2)
[2018-05-05] MEDS ORDERED: Coumadin2.5 MG PO (11:50)
[2018-05-05] MEDS ORDERED: FISH OIL 500MG PO (11:50)
[2018-05-05] MEDS ORDERED: LOVENOX120 MG/0.8 SC (11:50)
[2018-05-05] MEDS ORDERED: COUMADIN5 M2 PO (11:50)
[2018-05-05 12:00] VITALS: BP 125/61
[2018-05-12 06:10] LABS: LUPUS DRVVT 97.7 sec (0.0-47.0)
[2018-05-12 07:05] LABS: LUPUS REFLEX INTERPRETATION Comment: (.)
== END 2018-05-05 15:08 | disposition home or self-care (01) | DRG 622 ==
LOC: ED 17:12 → EDHOLD 20:09 → 4E 20:09
PROVIDERS: Emergency Medicine; Family Medicine; Internal Medicine; Internal Medicine Critical Care Medicine
PROC: 0JBR0ZZ Excision of Left Foot Subcutaneous Tissue and Fascia, Open Approach (ICD-10-PCS; principal; 2018-05-04)
DX: E11.621 Type 2 diabetes mellitus with foot ulcer (principal); I26.99 Other pulmonary embolism without acute cor pulmonale; L97.521 Non-pressure chronic ulcer of other part of left foot limited to breakdown of skin; R65.10 Systemic inflammatory response syndrome (SIRS) of non-infectious origin without acute organ dysfunction; I11.0 Hypertensive heart disease with heart failure; E44.0 Moderate protein-calorie malnutrition; I50.9 Heart failure, unspecified; E66.01 Morbid (severe) obesity due to excess calories; F41.9 Anxiety disorder, unspecified; E78.00 Pure hypercholesterolemia, unspecified; R59.1 Generalized enlarged lymph nodes; F32.9 Major depressive disorder, single episode, unspecified; F17.210 Nicotine dependence, cigarettes, uncomplicated; K57.90 Diverticulosis of intestine, part unspecified, without perforation or abscess without bleeding; K21.9 Gastro-esophageal reflux disease without esophagitis; J45.909 Unspecified asthma, uncomplicated; R06.82 Tachypnea, not elsewhere classified; E78.5 Hyperlipidemia, unspecified; E03.9 Hypothyroidism, unspecified; G47.33 Obstructive sleep apnea (adult) (pediatric); Z79.899 Other long term (current) drug therapy; Z79.4 Long term (current) use of insulin; Z87.01 Personal history of pneumonia (recurrent); Z82.49 Family history of ischemic heart disease and other diseases of the circulatory system; Z90.49 Acquired absence of other specified parts of digestive tract; Z68.34 Body mass index [BMI] 34.0-34.9, adult

== ENCOUNTER → 2018-05-06 | Outpatient (CLI) | payer BC ==
[~2018-05-06] MED LIST changes: +COUMADIN5 M2 PO; +Coumadin2.5 MG PO; +FISH OIL 500MG PO; +LOVENOX120 MG/0.8 SC
== END | disposition home or self-care (01) ==
LOC: LAB 01:23
PROVIDERS: Internal Medicine
DX: I26.99 Other pulmonary embolism without acute cor pulmonale (principal)

== ENCOUNTER → 2018-05-07 | Outpatient (CLI) | payer BC ==
[2018-05-07 10:12] LABS: INTERNATIONAL NORM RATIO 1.1 (2.0-3.5)
== END | disposition home or self-care (01) ==
LOC: LAB 00:58
PROVIDERS: Internal Medicine
DX: I26.99 Other pulmonary embolism without acute cor pulmonale (principal); Z79.01 Long term (current) use of anticoagulants

== ENCOUNTER → 2018-05-08 | Outpatient (CLI) | payer BC ==
[2018-05-08 10:32] LABS: INTERNATIONAL NORM RATIO 1.2 (2.0-3.5)
== END | disposition home or self-care (01) ==
LOC: LAB 08:22
PROVIDERS: Internal Medicine
DX: I26.99 Other pulmonary embolism without acute cor pulmonale (principal); Z79.01 Long term (current) use of anticoagulants

== ENCOUNTER → 2018-05-09 | Outpatient (CLI) | payer BC ==
[2018-05-09 12:03] LABS: INTERNATIONAL NORM RATIO 1.5 (2.0-3.5)
== END | disposition home or self-care (01) ==
LOC: LAB 03:29
PROVIDERS: Internal Medicine
DX: E11.621 Type 2 diabetes mellitus with foot ulcer (principal); L97.521 Non-pressure chronic ulcer of other part of left foot limited to breakdown of skin; L84 Corns and callosities; E11.40 Type 2 diabetes mellitus with diabetic neuropathy, unspecified; I10 Essential (primary) hypertension; Z87.891 Personal history of nicotine dependence; Z90.49 Acquired absence of other specified parts of digestive tract; Z86.711 Personal history of pulmonary embolism; Z79.4 Long term (current) use of insulin; Z79.01 Long term (current) use of anticoagulants

== ENCOUNTER → 2018-05-10 | Outpatient (CLI) | payer BC ==
[2018-05-10 12:18] LABS: INTERNATIONAL NORM RATIO 1.7 (2.0-3.5)
== END | disposition home or self-care (01) ==
LOC: LAB 02:33
PROVIDERS: Internal Medicine
DX: I26.99 Other pulmonary embolism without acute cor pulmonale (principal); Z79.01 Long term (current) use of anticoagulants

== ENCOUNTER → 2018-05-11 | Outpatient (CLI) | payer BC ==
[2018-05-11 10:59] LABS: INTERNATIONAL NORM RATIO 1.9 (2.0-3.5)
== END | disposition home or self-care (01) ==
LOC: LAB 02:51
PROVIDERS: Internal Medicine
DX: I26.99 Other pulmonary embolism without acute cor pulmonale (principal); Z79.01 Long term (current) use of anticoagulants

== ENCOUNTER → 2018-05-12 | Outpatient (CLI) | payer BC ==
[2018-05-12 13:00] LABS: INTERNATIONAL NORM RATIO 2.1 (2.0-3.5)
== END | disposition home or self-care (01) ==
LOC: LAB 01:23
PROVIDERS: Internal Medicine
DX: I26.99 Other pulmonary embolism without acute cor pulmonale (principal); Z79.01 Long term (current) use of anticoagulants

== ENCOUNTER → 2018-05-14 | Outpatient (CLI) | payer BC | END | disposition home or self-care (01) | LOC: LAB 05-13 11:58 | PROVIDERS: Internal Medicine | DX: I26.99 Other pulmonary embolism without acute cor pulmonale (principal); Z79.01 Long term (current) use of anticoagulants ==

== ENCOUNTER → 2018-05-15 | Outpatient (CLI) | payer BC ==
[2018-05-15 13:42] LABS: INTERNATIONAL NORM RATIO 2.5 (2.0-3.5)
== END | disposition home or self-care (01) ==
LOC: LAB 01:14
PROVIDERS: Internal Medicine
DX: I26.99 Other pulmonary embolism without acute cor pulmonale (principal); Z79.01 Long term (current) use of anticoagulants

== ENCOUNTER → 2018-06-13 | Outpatient (CLI) | payer BC | END | disposition home or self-care (01) | LOC: WOUNDCARE 05:18 → LAB 05:18 | DX: E11.621 Type 2 diabetes mellitus with foot ulcer (principal); L97.528 Non-pressure chronic ulcer of other part of left foot with other specified severity; E11.40 Type 2 diabetes mellitus with diabetic neuropathy, unspecified; I10 Essential (primary) hypertension; Z87.891 Personal history of nicotine dependence; Z86.711 Personal history of pulmonary embolism ==

== ENCOUNTER → 2019-05-01 | Outpatient (CLI) | payer BC ==
[2019-05-01 18:43] LABS: BASO # 0.1 10*3/uL (0.0-0.1); BASO % 0.4 % (0.0-1.0); EOS # 0.3 10*3/uL (0.0-0.4); EOS % 2.5 % (1.0-4.0); HEMATOCRIT 52.9 % (42.0-52.0); HEMOGLOBIN 17.7 g/dl (14.0-18.0); LYMPH # 2.2 10*3/uL (1.3-4.4); LYMPH % 15.6 % (27.0-41.0); MEAN CELL VOLUME 90.9 fl (80.0-94.0); MEAN CORPUSCULAR HGB 30.4 pg (27.0-31.0); MEAN CORPUSCULAR HGB CONC 33.5 g/dl (33.0-37.0); MONO # 0.7 10*3/uL (0.1-1.0); NEUT # 10.4 10*3/uL (2.3-7.9); NEUT % 75.6 % (47.0-73.0); PLATELET COUNT AUTOMATED 227 10*3/uL (130-400); RED BLOOD COUNT 5.82 10*6/uL (4.50-5.90); RED CELL DISTRI WIDTH 15.1 % (0-14.5); WHITE BLOOD COUNT 13.7 10*3/uL (4.8-10.8)
[2019-05-01 19:13] LABS: ALBUMIN 3.8 gm/dl (3.1-4.5); ALKALINE PHOSPHATASE 70 U/L (45-117); BUN 22 mg/dl (7-24); CHLORIDE 104 mmol/L (98-107); CHOLESTEROL 125 mg/dL (<200); CREATININE 1.17 mg/dL (0.70-1.30); HDL CHOLESTEROL 31 mg/dl (40-60); LDL CHOLESTEROL 60 mg/dL (9-159); POTASSIUM 3.8 mmol/L (3.5-5.1); SGOT/AST 19 IU/L (3-35); SGPT/ALT 30 U/L (12-78); SODIUM 139 mmol/L (136-145); TOTAL PROTEIN 7.5 gm/dL (6.4-8.2); TRIGLYCERIDES 168 mg/dl (<150); VLDL CHOLESTEROL 34 mg/dL (6-40)
[2019-05-01 19:14] LABS: FREE T4 0.83 ng/dl (0.76-1.46)
[2019-05-01 19:19] LABS: THYROID STIM HORMONE (HS) 23.7 uIU/ml (0.358-4.75)
== END | disposition home or self-care (01) ==
LOC: LAB 16:12
PROVIDERS: Internal Medicine Cardiovascular Disease; Internal Medicine Endocrinology, Diabetes & Metabolism
DX: I25.10 Atherosclerotic heart disease of native coronary artery without angina pectoris (principal); I10 Essential (primary) hypertension; I51.9 Heart disease, unspecified; K21.9 Gastro-esophageal reflux disease without esophagitis; E66.9 Obesity, unspecified; E78.5 Hyperlipidemia, unspecified; R76.0 Raised antibody titer; I49.3 Ventricular premature depolarization; I42.8 Other cardiomyopathies; I26.99 Other pulmonary embolism without acute cor pulmonale; R00.2 Palpitations; I82.4Z1 Acute embolism and thrombosis of unspecified deep veins of right distal lower extremity; T81.718A Complication of other artery following a procedure, not elsewhere classified, initial encounter; E11.40 Type 2 diabetes mellitus with diabetic neuropathy, unspecified; E06.3 Autoimmune thyroiditis; M19.90 Unspecified osteoarthritis, unspecified site; Z79.4 Long term (current) use of insulin

== ENCOUNTER → 2019-06-12 | Outpatient (CLI) | payer BC ==
[2019-06-12 15:38] LABS: INTERNATIONAL NORM RATIO 2.2 (2.0-3.5)
== END | disposition home or self-care (01) ==
LOC: LAB 15:05
PROVIDERS: Internal Medicine Critical Care Medicine
DX: Z51.81 Encounter for therapeutic drug level monitoring (principal); Z79.01 Long term (current) use of anticoagulants

== ENCOUNTER → 2019-07-26 | Outpatient (CLI) | payer BC ==
[2019-07-26 15:30] LABS: INTERNATIONAL NORM RATIO 3.6 (2.0-3.5)
== END | disposition home or self-care (01) ==
LOC: LAB 14:25
PROVIDERS: Internal Medicine Critical Care Medicine
DX: Z51.81 Encounter for therapeutic drug level monitoring (principal); Z79.01 Long term (current) use of anticoagulants

== ENCOUNTER → 2019-09-29 | Outpatient (CLI) | payer BC ==
[2019-09-29 15:23] LABS: INTERNATIONAL NORM RATIO 1.8 (2.0-3.5)
== END | disposition home or self-care (01) ==
LOC: LAB 14:38
PROVIDERS: Internal Medicine Critical Care Medicine
DX: Z79.01 Long term (current) use of anticoagulants (principal)

== ENCOUNTER → 2019-11-03 | Outpatient (CLI) | payer BC ==
[2019-11-03 16:18] LABS: BASO # 0.1 10*3/uL (0.0-0.1); BASO % 0.5 % (0.0-1.0); EOS # 0.3 10*3/uL (0.0-0.4); EOS % 3.1 % (1.0-4.0); HEMATOCRIT 57.1 % (42.0-52.0); HEMOGLOBIN 18.6 g/dl (14.0-18.0); LYMPH % 17.6 % (27.0-41.0); MEAN CELL VOLUME 91.1 fl (80.0-94.0); MEAN CORPUSCULAR HGB 29.7 pg (27.0-31.0); MEAN CORPUSCULAR HGB CONC 32.6 g/dl (33.0-37.0); MEAN PLATELET VOLUME 9.9 fl (9.6-12.3); MONO # 0.8 10*3/uL (0.1-1.0); MONO % 7.6 % (3.0-9.0); NEUT # 7.7 10*3/uL (2.3-7.9); NEUT % 69.2 % (47.0-73.0); PLATELET COUNT AUTOMATED 241 10*3/uL (130-400); RED BLOOD COUNT 6.27 10*6/uL (4.50-5.90); RED CELL DISTRI WIDTH 15.2 % (0-14.5); WHITE BLOOD COUNT 11.1 10*3/uL (4.8-10.8)
[2019-11-03 16:36] LABS: INTERNATIONAL NORM RATIO 2.5 (2.0-3.5)
[2019-11-03 16:54] LABS: ALKALINE PHOSPHATASE 72 U/L (45-117); BUN 31 mg/dl (7-24); CHLORIDE 106 mmol/L (98-107); CHOLESTEROL 149 mg/dL (<200); CREATININE 1.19 mg/dL (0.70-1.30); HDL CHOLESTEROL 25 mg/dl (40-60); LDL CHOLESTEROL 69 mg/dL (9-159); POTASSIUM 4.3 mmol/L (3.5-5.1); SGOT/AST 19 IU/L (3-35); SGPT/ALT 40 U/L (12-78); SODIUM 142 mmol/L (136-145); TRIGLYCERIDES 273 mg/dl (<150); VLDL CHOLESTEROL 55 mg/dL (6-40)
[2019-11-03 17:03] LABS: VITAMIN D, 25-HYDROXY 20.6 ng/mL (30-100)
== END | disposition home or self-care (01) ==
LOC: LAB 15:36
PROVIDERS: Internal Medicine Critical Care Medicine; Nurse Practitioner Family
DX: Z12.5 Encounter for screening for malignant neoplasm of prostate (principal); E11.40 Type 2 diabetes mellitus with diabetic neuropathy, unspecified; I51.9 Heart disease, unspecified; E29.1 Testicular hypofunction; E03.9 Hypothyroidism, unspecified; I10 Essential (primary) hypertension; E78.2 Mixed hyperlipidemia; Z79.01 Long term (current) use of anticoagulants

== ENCOUNTER → 2020-06-13 | Outpatient (CLI) | payer BC ==
[2020-06-13 13:30] LABS: INTERNATIONAL NORM RATIO 3.5 (2.0-3.5)
[2020-06-13 13:35] LABS: ALBUMIN 3.7 gm/dl (3.1-4.5); ALKALINE PHOSPHATASE 86 U/L (45-117); BUN 19 mg/dl (7-24); CHLORIDE 106 mmol/L (98-107); CHOLESTEROL 112 mg/dL (<200); CREATININE 1.33 mg/dL (0.70-1.30); FREE T4 0.83 ng/dl (0.76-1.46); HDL CHOLESTEROL 23 mg/dl (40-60); LDL CHOLESTEROL 22 mg/dL (9-159); POTASSIUM 3.9 mmol/L (3.5-5.1); SGOT/AST 20 IU/L (3-35); SGPT/ALT 45 U/L (12-78); SODIUM 139 mmol/L (136-145); TOTAL PROTEIN 7.8 gm/dL (6.4-8.2); TRIGLYCERIDES 336 mg/dl (<150); VLDL CHOLESTEROL 67 mg/dL (6-40)
[2020-06-14 11:07] LABS: CREATININE,URINE 78.2 mg/dL (Not Estab.)
== END | disposition home or self-care (01) ==
LOC: LAB 06-12 15:07
PROVIDERS: Internal Medicine Critical Care Medicine; ATTEND Internal Medicine Cardiovascular Disease
DX: I10 Essential (primary) hypertension (principal); I51.9 Heart disease, unspecified; I42.8 Other cardiomyopathies; R94.39 Abnormal result of other cardiovascular function study; E11.8 Type 2 diabetes mellitus with unspecified complications; E29.1 Testicular hypofunction; E03.8 Other specified hypothyroidism; E06.3 Autoimmune thyroiditis

== ENCOUNTER → 2021-04-24 | Outpatient (CLI) | payer BC ==
[2021-04-24 14:19] LABS: BASO % 0.4 % (0.0-1.0); EOS # 0.3 10*3/uL (0.0-0.4); EOS % 2.5 % (1.0-4.0); HEMATOCRIT 51.8 % (42.0-52.0); LYMPH # 1.8 10*3/uL (1.3-4.4); LYMPH % 17.1 % (27.0-41.0); MEAN CELL VOLUME 93.2 fl (80.0-94.0); MEAN CORPUSCULAR HGB 31.3 pg (27.0-31.0); MEAN CORPUSCULAR HGB CONC 33.6 g/dl (33.0-37.0); MEAN PLATELET VOLUME 9.5 fl (9.6-12.3); MONO # 0.7 10*3/uL (0.1-1.0); MONO % 6.1 % (3.0-9.0); NEUT # 7.8 10*3/uL (2.3-7.9); NEUT % 72.5 % (47.0-73.0); PLATELET COUNT AUTOMATED 232 10*3/uL (130-400); RED BLOOD COUNT 5.56 10*6/uL (4.50-5.90); RED CELL DISTRI WIDTH 14.9 % (0-14.5); WHITE BLOOD COUNT 10.7 10*3/uL (4.8-10.8)
[2021-04-24 14:47] LABS: ALBUMIN 3.9 gm/dl (3.1-4.5); CHLORIDE 106 mmol/L (98-107); CHOLESTEROL 105 mg/dL (<200); CREATININE 1.13 mg/dL (0.70-1.30); POTASSIUM 3.9 mmol/L (3.5-5.1); SGOT/AST 16 IU/L (3-35); SGPT/ALT 27 U/L (12-78); SODIUM 140 mmol/L (136-145); TOTAL PROTEIN 7.7 gm/dL (6.4-8.2); TRIGLYCERIDES 121 mg/dl (<150)
[2021-04-24 14:54] LABS: ALKALINE PHOSPHATASE 68 U/L (45-117); BUN 24 mg/dl (7-24); FREE T4 0.82 ng/dl (0.76-1.46); LDL CHOLESTEROL 51 mg/dL (9-159)
[2021-04-24 15:02] LABS: INTERNATIONAL NORM RATIO 2.2 (2.0-3.5)
[2021-04-25 10:08] LABS: CREATININE,URINE 56.1 mg/dL (Not Estab.)
== END | disposition home or self-care (01) ==
LOC: LAB 13:31
PROVIDERS: Internal Medicine Critical Care Medicine; Internal Medicine Endocrinology, Diabetes & Metabolism; ATTEND Nurse Practitioner Family
DX: Z12.5 Encounter for screening for malignant neoplasm of prostate (principal); I11.9 Hypertensive heart disease without heart failure; E55.9 Vitamin D deficiency, unspecified; E11.40 Type 2 diabetes mellitus with diabetic neuropathy, unspecified; E03.9 Hypothyroidism, unspecified; E78.2 Mixed hyperlipidemia; E11.65 Type 2 diabetes mellitus with hyperglycemia; I49.3 Ventricular premature depolarization; R94.39 Abnormal result of other cardiovascular function study; E11.8 Type 2 diabetes mellitus with unspecified complications; Z82.49 Family history of ischemic heart disease and other diseases of the circulatory system; Z79.01 Long term (current) use of anticoagulants; Z68.37 Body mass index [BMI] 37.0-37.9, adult